=== PATIENT | female | born 1980 | race Asian ===

== ENCOUNTER 2016-08-03 07:24 | Emergency (ER) | payer OTHER ==
[~2016-08-03] VITALS: Ht 165.1 cm; Wt 50.9 kg
[2016-08-03 07:28] VITALS: BP 123/81; PULSE 94; RESP 16; O2SAT 98
--- NOTE | 2016-08-03 07:41 | ED.REPORT ---
HPI-General Illness Date of Service Aug 03, 2016 ED Provider: History of Present Illness: Blood-borne pathogen exposure, reports blood splashed near her eye yesterday. I never actually saw the patient. 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 I did order the postexposure panel #7. Nursing Notes Stated Complaint: EXPOSURE PANEL Chief Complaint: Post Exposure Body Fluids Allergies: Coded Allergies: No Known Allergies (Unverified , 08/03/16) General Time Seen by MD: 07:40 Chief Complaint Other (blood-borne pathogen exposure) Past Medical History Past Medical History Unknown Review of Systems Not obtained Physical Exam No physical examination done-vital signs reviewed Vital Signs Vital Signs Date Time Temp Pulse Resp B/P Pulse Ox O2 Delivery O2 Flow Rate FiO2 08/03/16 07:28 36.8 94 16 123/81 98 Initial VS: Reviewed Interpretation & Diagnostics Lab Results Interpretation Test 08/03/16 07:37 Lab Results Interpretation: Postexposure panel #7 ordered. Physician states that she will follow up on her own laboratory tests. Discharge & Departure Primary Impression: Exposure to blood-borne pathogen Disposition: Home Chris Burton MD Aug 03, 2016 07:41
== END 2016-08-03 08:00 | disposition home or self-care (01) ==
LOC: SED 07:24
DX: Z77.21 Contact with and (suspected) exposure to potentially hazardous body fluids (principal); X58.XXXA Exposure to other specified factors, initial encounter; Y93.9 Activity, unspecified; Y92.239 Unspecified place in hospital as the place of occurrence of the external cause; Y99.0 Civilian activity done for income or pay
CPT/HCPCS: 36415; 86706; G0433; G0472